=== PATIENT | male | born 1995 | race Caucasian/White ===

== ENCOUNTER → 2023-05-10 | Outpatient (CLI) | payer OTHER ==
[~2023-05-10] MED LIST: ISOVUE-300 61% 100ML VIAL As Ordered ONE; LIDOCAINE 1% MDV 20ML VIAL As Ordered ONE; PROHANCE 279.3MG/ML 5ML VIAL As Ordered ONE
== END ==
LOC: M RAD 06:15
PROVIDERS: ATTEND Physical Therapist
DX: M25.512 Pain in left shoulder (principal)
CPT/HCPCS: 23350; 73223; 77002; A9576; Q9967